=== PATIENT | male | born 1955 | race African-American/Black ===

== ENCOUNTER 2018-05-30 19:03 | Emergency (ER) | payer BC, OTHER ==
[2018-05-30 19:11] VITALS: BP 126/86; PULSE 104; TEMP 102.8; BMI 31.8
[2018-05-30] MEDS ORDERED: ACETAMINOPHEN 500 MG TABLET (FP) PO ONE (20:10)
[2018-05-30] MEDS ORDERED: ACETAMINOPHEN 500 MG TABLET (FP) ONE (20:13)
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
== END 2018-05-30 20:27 | disposition home or self-care (01) ==
LOC: JERFT 19:03
DX: J40 Bronchitis, not specified as acute or chronic (principal); I10 Essential (primary) hypertension; E03.9 Hypothyroidism, unspecified
CPT/HCPCS: 71046-TC-FY; 99281-25

== ENCOUNTER 2018-06-01 10:52 | Emergency (ER) | payer BC ==
[2018-06-01 11:06] VITALS: BP 137/80; PULSE 88; TEMP 99.7; BMI 32.1
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
[2018-06-01] MEDS ORDERED: guaiFENesin/D-METHORPHAN HB 10 ML UNIT-DOSE CUPS PO ONE (11:32)
[2018-06-01] MEDS ORDERED: guaiFENesin/D-METHORPHAN HB 10 ML UNIT-DOSE CUPS ONE (11:34)
[2018-06-01 12:41] LABS: BASO % 0.3 % (0-2.0); HEMATOCRIT 40.5 % (35.4-49); HEMOGLOBIN 14.2 GM/dL (11.7-16.9); LYMPH % 3.4 % (8-40); MCH 31.7 pg (25.7-33.7); MCHC 34.9 g/dl (32.0-35.9); MEAN CELL VOLUME 90.7 fl (80-96); MEAN PLT VOLUME 9.3 fl (7.5-11.1); MONO % 10.6 % (3.8-10.2); NEUT % 85.7 % (42.8-82.8); PLATELET COUNT 158 K/MM3 (134-434); RBC 4.47 M/mm3 (4.00-5.60); WHITE BLOOD COUNT 13.2 K/mm3 (4.0-10.0)
[2018-06-01 13:15] LABS: ALBUMIN 3.4 g/dl (3.4-5.0); ALK PHOS 54 U/L (45-117); ANION GAP 6 MMOL/L (8-16); BILIRUBIN,TOTAL 0.5 mg/dL (0.2-1); BLOOD UREA NITROGEN 24 mg/dL (7-18); CALCIUM 8.6 mg/dL (8.5-10.1); CHLORIDE 103 mmol/L (98-107); CO2 27 mmol/L (21-32); CREATININE 1.6 mg/dL (0.55-1.3); GLUCOSE,RANDOM 123 mg/dL (74-106); SGOT/AST 41 U/L (15-37); SGPT/ALT 26 U/L (13-61); SODIUM 136 mmol/L (136-145); TOT PROT 7.3 g/dl (6.4-8.2)
== END 2018-06-01 14:24 | disposition home or self-care (01) ==
LOC: JERFT 10:52
DX: J18.9 Pneumonia, unspecified organism (principal); I10 Essential (primary) hypertension; E03.9 Hypothyroidism, unspecified
CPT/HCPCS: 36415; 71046-TC-FY; 71250-TC; 80053; 85025; 99281-25

== ENCOUNTER 2019-04-02 19:39 | Emergency (ER) | payer BC ==
[2019-04-02 19:50] VITALS: BMI 32.1
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
[2019-04-02 22:12] LABS: EPI CELLS 8.1 /HPF (0-5/HPF); HYALINE CASTS 13 /lpf (0-8); URINE APPEARANCE CLEAR; URINE BILIRUBIN NEGATIVE (NEGATIVE); URINE COLOR DK YELLOW; URINE GLUCOSE (UA) NEGATIVE (NEGATIVE); URINE KETONE NEGATIVE (NEGATIVE); URINE LEUK ESTERASE TRACE (NEGATIVE); URINE NITRITE NEGATIVE (NEGATIVE); URINE PROTEIN 1+ (NEGATIVE); URINE RBC 544 /hpf (0-4); URINE WBC 19 /hpf (0-5)
[2019-04-03 01:03] VITALS: BP 122/70; PULSE 90; TEMP 98.5
[2019-04-03] MEDS ORDERED: CEFTRIAXONE 1 GM/50 ML BAG ONE (01:08)
[2019-04-03] MEDS ORDERED: VANCOMYCIN 1 GRAM (PRE-DOCKED) 1,000 MG/250 ML BAG IVPB ONE (01:08)
== END 2019-04-03 01:04 | disposition home or self-care (01) ==
LOC: JER 19:39
DX: N39.0 Urinary tract infection, site not specified (principal); R31.9 Hematuria, unspecified; I10 Essential (primary) hypertension; E03.9 Hypothyroidism, unspecified
CPT/HCPCS: 74176-TC; 81003; 87086; 87186; 99283-25

== ENCOUNTER 2023-04-08 04:05 | Emergency (ER) | payer MEDICARE, OTHER ==
[2023-04-08 04:18] VITALS: BP 155/90; PULSE 70; RESP 18; TEMP 98.3; BMI 32.3
[2023-04-08] MEDS ORDERED: LIDOCAINE 5% TOPICAL PATCH TP ONE (05:24)
[2023-04-08] MEDS ORDERED: ACETAMINOPHEN 500 MG TABLET (FP) PO ONE (05:24)
[2023-04-08] MEDS ORDERED: METHOCARBAMOL 500 MG TABLET PO ONE (05:26)
[2023-04-08] MEDS ORDERED: METHOCARBAMOL 500 MG TABLET ONE (05:44)
[2023-04-08] MEDS ORDERED: LIDOCAINE 5% TOPICAL PATCH ONE (05:44)
[2023-04-08] MEDS ORDERED: ACETAMINOPHEN 500 MG TABLET (FP) ONE (05:45)
[2023-04-08] MEDS ORDERED: LIDOCAINE PATCH REMOVAL MC ONE (17:00)
== END 2023-04-08 06:46 | disposition home or self-care (01) ==
LOC: JER 04:05
DX: M54.2 Cervicalgia (principal); G47.9 Sleep disorder, unspecified
CPT/HCPCS: 99283-25

== ENCOUNTER 2024-04-02 04:38 | Emergency (ER) | payer OTHER ==
[2024-04-02 05:03] VITALS: BMI 32.7
[2024-04-02] MEDS ORDERED: MAG HYDROX/AL HYDROX/SIMETH 30 ML UNIT-DOSE CUP ONE (05:06)
[2024-04-02] MEDS ORDERED: ACETAMINOPHEN INJECTION 100 ML IVPB ONE (05:06)
[2024-04-02] MEDS ORDERED: FAMOTIDINE 20 MG/50 ML IVPB 20 MG/50 ML MG IVPB ONE (05:06)
[2024-04-02] MEDS: ACETAMINOPHEN 1000 MG/100 ML BAG IVPB ONE (05:40)
[2024-04-02] MEDS: MAG HYDROX/AL HYDROX/SIMETH 30 ML UNIT-DOSE CUP PO ONE (05:40)
[2024-04-02] MEDS ORDERED: ONDANSETRON 4 MG/2 ML VIAL ONE (05:42)
[2024-04-02] MEDS: ONDANSETRON 4 MG/2 ML VIAL IVPUSH ONE (05:48)
[2024-04-02] MEDS: FAMOTIDINE 20 MG/50 ML IVPB 20 MG/50 ML MG IVPB ONE (05:48)
[2024-04-02 05:58] LABS: INR 1.1 (0.83-1.09); PROTHROMBIN TIME (PATIENT) 12.4 SEC (9.7-13.0)
[2024-04-02 06:01] LABS: ACTIVATED PTT 24.8 SECONDS (25.2-36.5)
[2024-04-02 06:16] LABS: POTASSIUM 3.9 mmol/L (3.5-5.1)
[2024-04-02 06:17] LABS: LACTIC ACID 2.1 mmol/L (0.4-2.0)
[2024-04-02 06:18] LABS: ALBUMIN 4.1 g/dl (3.4-5.0); BLOOD UREA NITROGEN 21.7 mg/dL (7-18); CALCIUM 8.7 mg/dL (8.5-10.1); HEMATOCRIT 43.4 % (35.4-49); HEMOGLOBIN 14.7 GM/dL (11.7-16.9); MCH 31.6 pg (25.7-33.7); MCHC 33.9 g/dl (32.0-35.9); MEAN CELL VOLUME 93.2 fl (80-96); MEAN PLT VOLUME 10.3 fl (7.5-11.1); PLATELET COUNT 173 10^3/uL (134-434); RBC 4.65 M/mm3 (4.00-5.60); RDW 13.3 % (11.9-15.9); WHITE BLOOD COUNT 16.8 K/mm3 (4.0-10.0)
[2024-04-02 06:20] LABS: EPI CELLS 0 /uL (0-25.1); HYALINE CASTS 2 /uL (0-3.1); URINE APPEARANCE CLEAR; URINE BACTERIA 1332 /uL (0-1359); URINE BILIRUBIN NEGATIVE (NEGATIVE); URINE COLOR YELLOW; URINE GLUCOSE (UA) NEGATIVE (NEGATIVE); URINE KETONE NEGATIVE (NEGATIVE); URINE LEUK ESTERASE 3+ (NEGATIVE); URINE NITRITE NEGATIVE (NEGATIVE); URINE PROTEIN TRACE (NEGATIVE); URINE RBC 45 /uL (0-23.9); URINE WBC 782 /uL (0-25.8)
[2024-04-02 06:21] LABS: CREATININE 1.5 mg/dL (0.55-1.3)
[2024-04-02 06:23] LABS: BILIRUBIN,TOTAL 0.8 mg/dL (0.2-1); TOT PROT 7.2 g/dl (6.4-8.2)
[2024-04-02] MEDS: SODIUM CHLORIDE 1,000 ML IV STA (06:51)
[2024-04-02 09:36] LABS: ANISOCYTOSIS 0; HELMET CELLS 0; HOWELL-JOLLY BODIES 0; MACROCYTOSIS 0; OVALOCYTE 0; ROULEAU 0; SICKELED CELLS 0; TARGET CELLS 0; TEAR DROP CELLS 0; TOXIC GRANULATION 0
[2024-04-02 09:42] VITALS: BP 116/75; PULSE 90; RESP 16; TEMP 99.1
== END 2024-04-02 09:48 | disposition home or self-care (01) ==
LOC: JER 04:38
PROC: 3E033GC Introduction of Other Therapeutic Substance into Peripheral Vein, Percutaneous Approach (ICD-10-PCS; principal; 2024-04-02)
PROC: 3E03329 Introduction of Other Anti-infective into Peripheral Vein, Percutaneous Approach (ICD-10-PCS; 2024-04-02)
PROC: 3E033NZ Introduction of Analgesics, Hypnotics, Sedatives into Peripheral Vein, Percutaneous Approach (ICD-10-PCS; 2024-04-02)
PROC: 3E033GC Introduction of Other Therapeutic Substance into Peripheral Vein, Percutaneous Approach (ICD-10-PCS; 2024-04-02)
DX: R10.84 Generalized abdominal pain (principal); R35.0 Frequency of micturition; K59.00 Constipation, unspecified; N39.0 Urinary tract infection, site not specified; R00.0 Tachycardia, unspecified; Z20.822 Contact with and (suspected) exposure to COVID-19
CPT/HCPCS: 0241U-QW; 36415; 74177-TC; 80053; 81003; 83605; 83690; 85025; 85610; 85730; 87040; 87086; 87186; 96365; 96367; 96375; 99285-25; J0131; Q9967

== ENCOUNTER 2024-04-06 06:56 | Emergency (ER) | payer OTHER ==
[2024-04-06 07:11] VITALS: BP 136/88; PULSE 80; RESP 18; TEMP 98.9; BMI 32.3
== END 2024-04-06 09:25 | disposition home or self-care (01) ==
LOC: JERFT 06:56 → JER 06:56 → JERFT 09:25
DX: R05.9 Cough, unspecified (principal); R06.02 Shortness of breath; R09.81 Nasal congestion; K59.00 Constipation, unspecified
CPT/HCPCS: 0241U-QW; 71046-TC-FY; 99284-25

== ENCOUNTER 2025-02-15 14:54 | Emergency (ER) | payer BC, OTHER ==
[2025-02-15 15:06] VITALS: BP 128/75; PULSE 71; RESP 20; TEMP 98.5; BMI 32.7
[2025-02-15] MEDS ORDERED: ACETAMINOPHEN 500 MG TABLET (FP) ONE (15:54)
[2025-02-15] MEDS ORDERED: DICYCLOMINE HCL 10 MG CAPSULE ONE (15:55)
[2025-02-15] MEDS: DICYCLOMINE HCL 10 MG CAPSULE PO ONE (15:58)
[2025-02-15] MEDS: ACETAMINOPHEN 500 MG TABLET (FP) PO ONE (15:58)
== END 2025-02-15 17:01 | disposition home or self-care (01) ==
LOC: JER 14:54
DX: R10.30 Lower abdominal pain, unspecified (principal)
CPT/HCPCS: 99283-25